=== PATIENT | male | born 1950 | race Caucasian/White ===

== ENCOUNTER 2022-03-13 04:51 | Inpatient (IN) | payer OTHER ==
[~2022-03-13] VITALS: Ht 180.3 cm; Wt 146.7 kg
[2022-03-13 05:49] LABS: HEMOGLOBIN 10.2 gm/dl (14.0-17.5); RED BLOOD COUNT 3.44 M/UL (4.20-5.50)
[2022-03-13] MEDS ORDERED: FUROSEMIDE80 MG PO (12:06)
[2022-03-13] MEDS ORDERED: AMLODIPINE BESY10 MG PO (12:07)
[2022-03-13] MEDS ORDERED: AMMONIUM LACTA140 GM TOP (12:09)
[2022-03-13] MEDS ORDERED: HYDRALAZINE HCL50 MG PO (12:10)
[2022-03-13] MEDS ORDERED: LEVOTHYROXINE50 MCG PO (12:11)
[2022-03-13] MEDS ORDERED: ISOSORBIDE DINI30 MG PO (12:11)
[2022-03-13] MEDS ORDERED: ZETIA10 MG PO (12:12)
[2022-03-13] MEDS ORDERED: LEVEMIR FL100 UNIT/1 SQ (12:12)
[2022-03-13] MEDS ORDERED: CLOPIDOGREL75 MG PO (12:13)
[2022-03-13] MEDS ORDERED: ATORVASTATIN CA40 MG PO (12:13)
[2022-03-13] MEDS ORDERED: ASPIRIN EC81 MG PO (12:14)
[2022-03-13] MEDS ORDERED: FERROUS SULFAT324 MG PO (12:15)
[2022-03-13] MEDS ORDERED: VITAMIN D350 MC3 PO (12:16)
[2022-03-13] MEDS ORDERED: MULTIVITAMIN1 EACH PO (12:16)
[2022-03-13] MEDS ORDERED: SYSTANE 0.3-0.415 ML OU (12:17)
[2022-03-14 03:13] LABS: HEMOGLOBIN 10.1 gm/dl (14.0-17.5); RED BLOOD COUNT 3.41 M/UL (4.20-5.50); WHITE BLOOD COUNT 5.4 K/UL (4.5-11.0)
[2022-03-16 02:53] LABS: HEMOGLOBIN 10.8 gm/dl (14.0-17.5); RED BLOOD COUNT 3.6 M/UL (4.20-5.50); WHITE BLOOD COUNT 5.5 K/UL (4.5-11.0)
[2022-03-17 06:43] LABS: CREATININE, URINE 59.9 mg/dL (Not Estab.)
[2022-03-18 15:11] LABS: A/G RATIO 0.8 (0.7-1.7); ALBUMIN 2.8 g/dL (2.9-4.4); ALPHA-1-GLOBULIN 0.3 g/dL (0.0-0.4); ALPHA-2-GLOBULIN 0.8 g/dL (0.4-1.0); BETA GLOBULIN 1.2 g/dL (0.7-1.3); GAMMA GLOBULIN 1.5 g/dL (0.4-1.8); GLOBULIN, TOTAL 3.8 g/dL (2.2-3.9); IMMUNOGLOBULIN A, QN, SERUM 405 mg/dL (61-437); IMMUNOGLOBULIN G, QN, SERUM 1633 mg/dL (603-1613); IMMUNOGLOBULIN M, QN, SERUM 138 mg/dL (20-172); M-SPIKE Not Observed g/dL (Not Observed); PROTEIN, TOTAL, SERUM 6.6 g/dL (6.0-8.5)
[2022-03-19] MEDS ORDERED: HYDROCODON-ACE1 EAC2 PO (17:38)
--- NOTE | 2022-03-19 21:09 | NUR ---
PT DID NOT BRING IN HOME MEDS. PHARMACY TO COMPLETE HOME MED LIST IN AM. WILL CONTINUE TO MONITOR.
[2022-03-22 03:46] LABS: RED BLOOD COUNT 4.56 M/UL (4.20-5.50)
--- NOTE | 2022-03-22 05:27 | NUR ---
patient with hot compress on left thigh area and tolerating well patient denies pain
== END 2022-03-22 18:12 | disposition home health service (06) | DRG 683 ==
LOC: ER1 04:51 → CDU 09:55 → M/S 12:05
PROVIDERS: Internal Medicine; Internal Medicine Nephrology; Physician Assistant; Physician Assistant Medical; ADMIT Internal Medicine Infectious Disease
PROC: B24BZZZ Ultrasonography of Heart with Aorta (ICD-10-PCS; principal; 2022-03-13)
DX: N17.9 Acute kidney failure, unspecified (principal); I13.0 Hypertensive heart and chronic kidney disease with heart failure and stage 1 through stage 4 chronic kidney disease, or unspecified chronic kidney disease; J90 Pleural effusion, not elsewhere classified; S32.302A Unspecified fracture of left ilium, initial encounter for closed fracture; S32.059A Unspecified fracture of fifth lumbar vertebra, initial encounter for closed fracture; I50.32 Chronic diastolic (congestive) heart failure; N13.6 Pyonephrosis; N18.4 Chronic kidney disease, stage 4 (severe); E78.5 Hyperlipidemia, unspecified; E03.9 Hypothyroidism, unspecified; E11.22 Type 2 diabetes mellitus with diabetic chronic kidney disease; I25.10 Atherosclerotic heart disease of native coronary artery without angina pectoris; M21.371 Foot drop, right foot; R59.9 Enlarged lymph nodes, unspecified; R01.1 Cardiac murmur, unspecified; E66.01 Morbid (severe) obesity due to excess calories; R59.1 Generalized enlarged lymph nodes; R53.81 Other malaise; N40.1 Benign prostatic hyperplasia with lower urinary tract symptoms; K80.20 Calculus of gallbladder without cholecystitis without obstruction; W01.0XXA Fall on same level from slipping, tripping and stumbling without subsequent striking against object, initial encounter; Z98.890 Other specified postprocedural states; Z82.49 Family history of ischemic heart disease and other diseases of the circulatory system; Z95.1 Presence of aortocoronary bypass graft; Z87.442 Personal history of urinary calculi; Z83.3 Family history of diabetes mellitus; Z95.5 Presence of coronary angioplasty implant and graft; Z90.89 Acquired absence of other organs
CPT/HCPCS: ECHO; 36415; 71045; 72128; 72131; 72192; 73552; 80048; 80053; 81001; 82043; 82550; 82553; 82570; 82728; 82784; 82803; 82962; 83036; 83540; 83550; 83735; 83880; 83883; 84153; 84155; 84156; 84165; 84443; 84484; 85025; 85027; 86334; 87086; 93005; 93306; 96374; 96375; 96376; 97110; 97110-GP-CQ; 97116; 97116-GP-CQ; 97161; 97165; 97530; 97530-GP-CQ; 97535; 99285; G0378; J0696; J1650; J1940; J2270; J2405